=== PATIENT | male | born 1975 | race Caucasian/White ===

== ENCOUNTER → 2018-12-11 | Emergency (ER) | payer BC ==
[~2018-12-11] VITALS: Ht 180.3 cm; Wt 84.1 kg
[~2018-12-11] MED LIST: ESTER-C 500 MG1 TAB; MOBIC7.5 MG PO; OMEPRAZOLE20 M1 PO; VIBRAMYCIN 100100 MG PO
[2018-12-11 15:13] VITALS: BP 164/130; Ht 180.3 cm; Wt 84.1 kg
[2018-12-11 16:15] LABS: BASOPHILS 0.7 % (0-2); HEMATOCRIT 47.1 % (42.0-54.0); IMMATURE GRANULOCYTES 0.4 % (0-5); LYMPHOCYTES 23.9 % (15-50); MCH 32.4 pg (26.0-34.0); MCHC 36.1 g/dL (31.0-37.0); MCV 89.9 fL (80.0-100.0); MEAN PLATELET VOLUME 9.4 fL (7.4-10.4); MONOCYTES 10.7 % (2-11); NEUTROPHILS 62.3 % (40-80); PLATELET COUNT 236 10x3/uL (130-400); RBC 5.24 10x6/uL (4.20-6.10); WBC 8.2 10x3/uL (4.8-10.8)
[2018-12-11 16:18] LABS: ALBUMIN 4.5 g/dL (3.4-5.0); ALKALINE PHOSPHATASE 62 U/L (46-116); ALT (SGPT) 65 U/L (10-68); BILIRUBIN - TOTAL 1.07 mg/dL (0.2-1.3); CALC OSMOLALITY 288 mosm/kg (275-300); CALCIUM 9.3 mg/dL (8.5-10.1); CARBON DIOXIDE 25.9 mmol/L (21.0-32.0); CHLORIDE - SERUM 107 mmol/L (98-107); GLUCOSE 88 mg/dL (74-106); POTASSIUM - SERUM 4.1 mmol/L (3.5-5.1); PROTEIN - SERUM 8.7 g/dL (6.4-8.2); SODIUM 145 mmol/L (136-145); UREA NITROGEN 16 mg/dL (7-18); eGFR NON AFRICAN AMERICAN 87 mL/min (90-120)
== END | disposition home or self-care (01) ==
LOC: D.ER 15:11
PROVIDERS: Family Medicine
DX: K22.9 Disease of esophagus, unspecified (principal); K21.9 Gastro-esophageal reflux disease without esophagitis; Z87.19 Personal history of other diseases of the digestive system